=== PATIENT | female | born 1965 | race Caucasian/White ===

== ENCOUNTER 2024-06-01 08:24 | Inpatient (IN) | payer MEDICARE, MEDICAID, SELFPAY ==
[2024-06-01] VITALS (11 sets, daily range): BP systolic 105–140; BP diastolic 63–86; PULSE 59–140; RESP 10–20; TEMP 35.5–36.4; O2SAT 96–100; BMI 33.0
--- NOTE | ~2024-06-01 | XR_ITS ---
EXAMINATION: XR CHEST CLINICAL INFORMATION: Atrial fibrillation COMPARISON: None available. TECHNIQUE: Frontal view of the chest was obtained. FINDINGS: Lungs clear. Heart and pulmonary vessels normal. No evidence for congestive failure. Degenerative change seen in both shoulders. XR/XR chest 1V IMPRESSION: Unremarkable examination. Electronically signed by: Harsh Richardson MD 06/01/2024 10:20 AM EDT
--- NOTE | 2024-06-01 08:29 | ECG_ITS ---
Test Reason : FALL Blood Pressure : / mmHG Vent. Rate : 121 BPM Atrial Rate : 000 BPM P-R Int : 000 ms QRS Dur : 074 ms QT Int : 334 ms P-R-T Axes : 000 017 -04 degrees QTc Int : 474 ms Atrial fibrillation with rapid ventricular response (can be flutter) Nonspecific T wave abnormality Abnormal ECG No previous ECGs available Referred By: Generic ED Physician Electronically Signed By:ALEX GARDNER
[2024-06-01] MEDS: Metoprolol Tartrate 5 MG/5 ML VIAL IVPUSH (08:56)
--- NOTE | 2024-06-01 09:01 | ED_ITS ---
HPI - Arrhythmia/Palpitations General Chief Complaint: Arrhythmia/Palpitations Stated Complaint: [facility]170[facility] PER EMS Time Seen by Provider: 06/01/24 08:43 Source: patient and EMS Mode of arrival: EMS Limitations: no limitations History of Present Illness ED Provider: DR. Madrid HPI narrative: 58-year-old female came in from geriatric psych unit, brought in by EMS for evaluation of new onset atrial fibrillation, patient is a limited historian able to answer some of the question, has no chest pain, no shortness of breath, Found to be in rapid atrial fibrillation by the nursing staff today. Reviewing patient medication no anti arrhythmic or anticoagulation medication. Related Data Allergies Allergy/AdvReac Type Severity Reaction Status Date / Time acetaminophen [From Tylenol] Allergy Unknown Verified 06/01/24 08:38 aspirin [ASA] Allergy Unknown Verified 06/01/24 08:38 olanzapine [From Zyprexa] Allergy Unknown Verified 06/01/24 08:38 Penicillins [PCN] Allergy Unknown Verified 06/01/24 08:38 Review of Systems 2 Review of Systems: All other systems are reviewed and are negative Constitutional: Reports as per HPI and Reports no additional constitutional complaints Eyes: Reports as per HPI and Reports no additional eye complaints Reports system reviewed and no additional complaints, except as documented Cardiovascular: Reports as per HPI and Reports no additional cardiovascular complaints Respiratory: Reports as per HPI and Reports no additional respiratory complaints Gastrointestinal: Reports as per HPI and Reports no additional gastrointestinal complaints Genitourinary: Reports no additional female genitourinary complaints Musculoskeletal: Reports no additional musculoskeletal complaints Skin/Breast: Reports system reviewed and no additional complaints, except as docu Psychiatric: Reports no additional psychiatric complaints Endocrine: Reports no additional endocrine complaints Hematologic/Lymphatic: Reports no additional hematologic/lymphatic complaints Allergic/Immunologic: Reports no additional allergic/immunologic complaints Reports system reviewed and no additional complaints, except as documented and Reports Abnormal speech present [facility] Social History Social History Smoked in Last 30 Days: No Use of substances other than those prescribed or required for medical reasons: No Advance Directives: No Advance Directives Information Provided: Yes Do you have a plan to hurt others: No Plan Physical Exam 2 Vital Signs: Vital Signs: Last Vital Signs Temp 97.6 F 06/01/24 08:42 Pulse 70 06/01/24 09:51 Resp 18 06/01/24 09:51 BP 137/86 06/01/24 09:51 Pulse Ox 97 06/01/24 09:51 O2 Del Method Room Air 06/01/24 09:01 BMI result Body Mass Index 33.0 Vital signs have been reviewed and appear to be correct. Blood pressure elevated. Heart rate normal. Respiratory rate normal. Temperature normal. Oxygen saturation normal. Appearance: Alert. No acute distress. Head: Normal external exam. Normocephalic. Atraumatic. No Ag signs noted. No raccoon eyes noted Eyes: PERRLA. EOMI. Conjunctiva and sclera normal. Eyelids normal. ENT: TM's Normal. Pharynx normal. Uvula midline. Moist mucous membranes. No trismus noted. No drooling noted. No muffled voice noted. Neck: Normal inspection. Neck supple. FROM. No adenopathy. Thyroid Normal. No meningeal signs. No neck mass noted. CVS: Normal heart rate and rhythm. Heart sound normal. No murmurs noted. Pulses normal throughout. Respiratory: No respiratory distress. Painless inspiration. Breath sounds normal. No wheezes/rales/rhonchi noted. Chest nontender. No accessory muscle usage noted or decreased air movement noted. Abdomen: Soft and nontender. Bowel sounds normal in all 4 quadrants. No distention noted. No organomegaly noted. No visible injury noted. Back: No CVA tenderness. Full range of motion noted. Skin: Skin warm and dry. Normal skin color. Normal skin turgor. No rashes/lesions/lacerations noted. Extremities: No lower extremity edema. Extremities exhibit normal range of motion. Extremities nontender. Neuro: Oriented X [address] Cranial nerve exam: II-XII are grossly intact No motor deficit. No sensory deficit. Reflexes normal. Course Reevaluation(s) Reevaluation #1: new onset rapid atrial fibrillation that is controlled with metoprolol / digoxin IV in the emergency department, labs were unremarkable, patient otherwise hemodynamically stable. Will admit for further cardiac workup. Time: 10:07 Medications Administered Discontinued Medications Generic Name Dose Route Start Last Admin Trade Name Freq PRN Reason Stop Dose Admin Digoxin 0.25 mg 06/01/24 08:46 06/01/24 09:02 Digoxin 0.5 Mg/2 Ml Ampul IVPUSH 06/01/24 08:47 0.25 mg ONCE ONE Administration Protocol Metoprolol Tartrate 5 mg 06/01/24 08:46 06/01/24 08:56 Metoprolol Tartrate 5 Mg/5 Ml Vial IVPUSH 06/01/24 08:47 5 mg ONCE ONE Administration Protocol Medical Decision Making Differential Diagnosis Differential Diagnoses: The differential diagnosis associated with the presentation includes ( New onset atrial fibrillation with rapid ventricular response, dysrhythmia, ACS, CHF, electrolyte derangement, Severe anemia.) Admission/Observation Consideration of admission/observation: Escalation of care including admission/observation considered Lab Data MDM Lab Attestation statement: I reviewed the patient's lab results. 06/01/24 09:00 06/01/24 09:00 Labs: Lab Results 06/01/24 Range/Units 09:00 WBC 5.6 (4.8-10.8) X10*3/uL RBC 4.46 (4.20-5.50) X10*6/uL Hgb 13.9 (12.0-16.0) g/dl Hct 41.2 (37.0-47.0) % MCV 92.4 (80.0-98.0) fL MCH 31.2 (27.0-33.0) pg MCHC 33.7 (31.0-35.0) g/dl RDW 12.9 (11.0-16.0) % Plt Count 140 L (160-400) X10*3/uL MPV 12.2 (9.4-12.3) fL Immature Gran % (Auto) 0.2 (0.0-0.4) % Neut % (Auto) 62.1 (45-73) % Lymph % (Auto) 25.6 (20-40) % [place] % (Auto) 9.8 (2-11) % Eos % (Auto) 1.8 (0-4) % Baso % (Auto) 0.5 (0-2) % Lymph # (Auto) 1.4 (1.2-4.9) X10*3/uL [place] # (Auto) 0.6 (0.1-1.2) X10*3/uL Eos # (Auto) 0.1 (0.0-0.4) X10*3/uL Baso # (Auto) 0.0 (0.0-0.2) X10*3/uL Abs Immat Gran (auto) 0.01 (0.00-0.03) X10*3/uL Absolute Neuts (auto) 3.5 (2.0-8.3) x10*3/uL Absolute Nucleated RBC 0.000 (0.0-0.012) X10*3/uL Nucleated RBC % (auto) 0.0 (0.0-0.2) /100WBC PT 10.2 L (10.9-12.4) SEC INR 0.9 (0.9-1.1) Sodium 141 (135-145) mmol/L Potassium 4.2 (3.3-5.1) mmol/L Chloride 105 (96-108) mmol/L Carbon Dioxide 28 (22-29) mmol/L Anion Gap 12 (12-20) BUN 13 (9-16) mg/dL Creatinine 0.89 (0.5-1.4) mg/dL Estim Creat Clear Calc 76.3 Estimated GFR > 60 Random Glucose 144 H (60-115) mg/dL Total Bilirubin 0.3 (0.0-1.0) mg/dL Direct Bilirubin 0.1 (0.0-0.5) mg/dL AST 31 (5-31) U/L ALT 21 (0-31) U/L Alkaline Phosphatase 87 (39-117) U/L Troponin I High Sens 7.2 (<3.5-17.0) ng/L B-Natriuretic Peptide 43 (<100) pg/mL Total Protein 7.3 (6.5-8.0) g/dL Albumin 4.0 (3.5-5.0) g/dL Lipase 15 (8-78) U/L Influenza Type A (PCR) NEGATIVE (Negative) Influenza Type B (PCR) NEGATIVE (Negative) RSV RNA Qual (PCR) NEGATIVE (Negative) SARS-CoV-2 RNA (RT-PCR) NEGATIVE (Negative) Independent Interpretation I performed an independent interpretation of an: Plain X-Ray ( Chest: No acute intrathoracic pathology.) Radiology Impression Discussion of test interpretation with radiology: I have reviewed the radiologist's reading. Discharge Plan Discharge Clinical Impression: Atrial fibrillation with RVR Patient Disposition: Admitted As Inpatient Print Language: Georgian
[2024-06-01] MEDS: Digoxin 0.5 MG/2 ML AMPUL 0.25 MG IVPUSH (09:02)
[2024-06-01 09:05] LABS: MANUAL DIFF FLAG NO
[2024-06-01 09:07] LABS: Basophils Percent Auto 0.5 % (0-2); Eosinophils Absolute Auto 0.1 X10*3/uL (0.0-0.4); Eosinophils Percent Auto 1.8 % (0-4); Hematocrit 41.2 % (37.0-47.0); Hemoglobin 13.9 g/dl (12.0-16.0); Imm Gran Abs Auto 0.01 X10*3/uL (0.00-0.03); Imm Gran Pct Auto 0.2 % (0.0-0.4); Lymphocytes Absolute Auto 1.4 X10*3/uL (1.2-4.9); Lymphocytes Percent Auto 25.6 % (20-40); Mean Corpuscular HGB Conc 33.7 g/dl (31.0-35.0); Mean Corpuscular Hemoglobin 31.2 pg (27.0-33.0); Mean Corpuscular Volume 92.4 fL (80.0-98.0); Mean Platelet Volume 12.2 fL (9.4-12.3); Monocytes Absolute Auto 0.6 X10*3/uL (0.1-1.2); Monocytes Percent Auto 9.8 % (2-11); Neutrophils Absolute Auto 3.5 x10*3/uL (2.0-8.3); Neutrophils Percent Auto 62.1 % (45-73); Platelet Count 140 X10*3/uL (160-400); Red Blood Count 4.46 X10*6/uL (4.20-5.50); Red Cell Distribution Width 12.9 % (11.0-16.0); White Blood Count 5.6 X10*3/uL (4.8-10.8)
[2024-06-01 09:13] LABS: INTERNATIONAL NORM RATIO 0.9 (0.9-1.1); Prothrombin Time 10.2 SEC (10.9-12.4)
[2024-06-01 09:34] LABS: B Type Natriuretic Peptide 43 pg/mL (<100)
[2024-06-01 09:35] LABS: Troponin-I High Sensitivity 7.2 ng/L (<3.5-17.0)
[2024-06-01 09:50] LABS: Alanine Aminotransferase 21 U/L (0-31); Alkaline Phosphatase 87 U/L (39-117); Anion Gap 12 (12-20); Aspartate Amino Transferase 31 U/L (5-31); Bilirubin Direct 0.1 mg/dL (0.0-0.5); Bilirubin Total 0.3 mg/dL (0.0-1.0); Blood Urea Nitrogen 13 mg/dL (9-16); Carbon Dioxide 28 mmol/L (22-29); Chloride 105 mmol/L (96-108); Creatinine Clr Calc Pharmacy 76.3; Estimated Glomerular Filt Rate > 60; Glucose Random 144 mg/dL (60-115); Lipase 15 U/L (8-78); Potassium 4.2 mmol/L (3.3-5.1); Sodium 141 mmol/L (135-145); Total Protein 7.3 g/dL (6.5-8.0)
[2024-06-01 09:51] LABS: Influenza A PCR NEGATIVE (Negative); Influenza B PCR NEGATIVE (Negative); Resp Syncy Virus RNA Qual PCR NEGATIVE (Negative); SARS COV2 PCR INHOUSE NEGATIVE (Negative)
[2024-06-01 10:22] LABS: Calcium 9.6 mg/dL (8.4-10.2)
[2024-06-01 11:04] LABS: Appearance Urine Clear; Color Urine Yellow; Glucose Urine UA Negative (Negative); Leukocyte Esterase Urine Trace (Negative); Nitrite Urine Negative (Negative); Specific Gravity - Urine <= 1.005 (1.005-1.025); UMIC TRIGGER UACC YES; Urine Blood Negative (Negative); Urine Ketones Negative (Negative); Urine Protein Negative (Neg-Trace)
--- NOTE | 2024-06-01 11:04 | PHA.MEDREC ---
Pharmacy Consult ? Medication Reconciliation Pharmacy has completed the medication reconciliation. List from [place]
[2024-06-01 11:06] LABS: Bacteria Urine None Seen (None Seen); Hyaline Casts Urine 0-2 /LPF (0-2); RBC Urine 0-2 /HPF (0-2); Squamous Epithelial Cell Urine 0-2 /HPF (0-2); WBC Urine 0-5 /HPF (0-5)
[2024-06-01 11:46] LABS: Thyroid Stimulating Hormone 2.88 uIU/mL (0.32-4.0)
--- NOTE | 2024-06-01 11:52 | P.HPHOSP_ITS ---
History of Present Illness Date of Service: 06/01/24 Attending physician on admission: Bharti Nelson Chief Complaint: new onset a. fib Patient is a 58-year-old female with a past medical history significant for dementia with limited history, arrived in ED from [facility] due to new onset AFib. Due to her limited cognitive status history was difficult to obtain however patient denies chest pain, shortness of breath, nausea, vomiting, dizziness or weakness. She reports she reports a history of alcohol use however none recently. Review of Systems 2 Review of Systems: Likely inaccurate due to mental status Constitutional: Constitutional: Denies chills, Denies fatigue, Denies fever(s), Denies headache(s) and Denies weakness Eyes: Eyes: Denies blurry vision and Denies change in vision ENT: Denies dizziness, Denies headache(s), Denies nasal congestion, Denies nasal discharge and Denies sore throat Cardiovascular: Cardiovascular: Denies syncope, Denies lightheadedness and Denies dyspnea Respiratory: Respiratory: Denies cough and Denies dyspnea Gastrointestinal: Gastrointestinal: Denies constipation, Denies diarrhea, Denies nausea and Denies vomiting Genitourinary: Genitourinary: Denies dysuria and Denies urinary urgency Musculoskeletal: Musculoskeletal: Reports myalgias Integumentary/Breasts: Skin/Breast: Denies rash Neurologic: Denies confusion, Denies dizziness, Denies syncope, Denies headache(s), Denies focal weakness, Denies convulsions and Denies weakness Psychiatric: Psychiatric: Denies confusion Endocrine: Endocrine: Denies fatigue [facility] Medical History (Updated 06/01/24 @ 12:33 by Alexsandra Sawant PA-C) History of ETOH abuse Dementia Social History Smoked in Last 30 Days: No Use of substances other than those prescribed or required for medical reasons: No Advance Directives: No Advance Directives Information Provided: Yes Do you have a plan to hurt others: No Plan Meds Allergies Allergy/AdvReac Type Severity Reaction Status Date / Time acetaminophen [From Tylenol] Allergy Unknown Verified 06/01/24 08:38 aspirin [ASA] Allergy Unknown Verified 06/01/24 08:38 olanzapine [From Zyprexa] Allergy Unknown Verified 06/01/24 08:38 Penicillins [PCN] Allergy Unknown Verified 06/01/24 08:38 Home Medications ?Medication ?Instructions ?Recorded ?Confirmed ?Last Taken ?Type albuterol sulfate 90 mcg/actuation 2 puff inhalation Q4-6H PRN 06/01/24 06/01/24 Unknown History aerosol inhaler Wheezing benzocaine-menthol lozenges 1 natalie PO Q2H PRN Sore Throat 06/01/24 06/01/24 Unknown History diphenhydramine HCl 25 mg capsule 25 mg PO Q6H PRN Itching 06/01/24 06/01/24 Unknown History divalproex 500 mg tablet,extended 500 mg PO BID 06/01/24 06/01/24 Unknown History release 24 hr docusate sodium 100 mg capsule 100 mg PO DAILY 06/01/24 06/01/24 Unknown History donepezil 10 mg tablet 10 mg PO BEDTIME 06/01/24 06/01/24 Unknown History hydroxyzine HCl 50 mg tablet 50 mg PO QID PRN Anxiety 06/01/24 06/01/24 Unknown History ibuprofen 600 mg tablet 600 mg PO Q6H PRN Pain (Scale 06/01/24 06/01/24 Unknown History Score 4-6) lidocaine 4 % topical patch 1 patch topical DAILY PRN Pain 06/01/24 06/01/24 Unknown History loperamide 2 mg capsule 2 mg PO Q4H PRN Diarrhea 06/01/24 06/01/24 Unknown History lorazepam 0.5 mg tablet 0.5 mg PO Q8H PRN Anxiety 06/01/24 06/01/24 Unknown History paliperidone 6 mg tablet,extended 6 mg PO DAILY 06/01/24 06/01/24 Unknown History release 24 hr paliperidone palmitate 156 mg/mL 156 mg IM Q30D 06/01/24 06/01/24 Unknown History intramuscular syringe quetiapine 50 mg tablet 50 mg PO BID PRN Anxiety 06/01/24 06/01/24 Unknown History trazodone 50 mg tablet 50 mg PO BEDTIME PRN Insomnia 06/01/24 06/01/24 Unknown History Physical Exam 2 Vital Signs and Narrative: Vital Signs: Last Vital Signs Temp 97.6 F 06/01/24 08:42 Pulse 68 06/01/24 10:29 Resp 14 06/01/24 10:29 BP 124/69 10/29/24 10:29 Pulse Ox 97 06/01/24 10:29 O2 Del Method Room Air 06/01/24 10:29 BMI result Body Mass Index 33.0 General: alert, oriented to person and place, no acute distress Resp: CTA bilaterally CVS: S1, S2, RRR, no active a fib on monitor GI: +BS, NT, no distention Skin: Warm, dry Neuro: Cranial nerves II-XII grossly intact bilaterally. Motor grossly intact bilaterally Extremities: No edema Psych: confused, normal affect Const: General: No confusion Orientation/consciousness: No confusion Neuro: General: No confusion Results Labs 06/01/24 09:00 06/01/24 09:00 Labs: Laboratory Results - last 24 hr 06/01/24 06/01/24 09:00 10:54 MCV 92.4 MCH 31.2 MCHC 33.7 RDW 12.9 Plt Count 140 L MPV 12.2 Immature Gran % (Auto) 0.2 Neut % (Auto) 62.1 Lymph % (Auto) 25.6 [place] % (Auto) 9.8 Eos % (Auto) 1.8 Baso % (Auto) 0.5 Lymph # (Auto) 1.4 [place] # (Auto) 0.6 Eos # (Auto) 0.1 Baso # (Auto) 0.0 Abs Immat Gran (auto) 0.01 Absolute Neuts (auto) 3.5 Absolute Nucleated RBC 0.000 Nucleated RBC % (auto) 0.0 PT 10.2 L INR 0.9 Anion Gap 12 Estim Creat Clear Calc 76.3 Estimated GFR > 60 Random Glucose 144 H Calcium 9.6 Total Bilirubin 0.3 Direct Bilirubin 0.1 AST 31 ALT 21 Alkaline Phosphatase 87 Troponin I High Sens 7.2 B-Natriuretic Peptide 43 Total Protein 7.3 Albumin 4.0 Lipase 15 TSH 2.88 Urine Color Yellow Urine Appearance Clear Urine pH 8.0 Ur Specific [place] <= 1.005 Urine Protein Negative Urine Glucose (UA) Negative Urine Ketones Negative Urine Blood Negative Urine Nitrite Negative Ur Leukocyte Esterase Trace H Urine RBC 0-2 Urine WBC 0-5 Ur Squamous Epith Cells 0-2 Urine Bacteria None Seen Hyaline Casts 0-2 Influenza Type A (PCR) NEGATIVE Influenza Type B (PCR) NEGATIVE RSV RNA Qual (PCR) NEGATIVE SARS-CoV-2 RNA (RT-PCR) NEGATIVE ECG Interpretation: rapid a fib with RVR Imaging Radiologist's Impressions: Impressions Chest X-Ray 06/01/24 09:00 IMPRESSION: Unremarkable examination. Electronically signed by: Harsh Richardson MD 06/01/2024 10:20 AM EDT RP Assessment and Plan (1) Atrial fibrillation with RVR: Status: Acute (2) Obesity (BMI 30.0-34.9): Status: Chronic Plan Patient is a 58-year-old female with a past medical history significant for dementia and mood disorder with limited history, arrived in ED from [facility] due to new onset AFib. EKG and tele here consistent with AFib with RVR. Patient given digoxin 0.25 mg and metoprolol 5 mg and ED with good improvement. New onset AFib with RVR - stable - given digoxin 0.25 and metoprolol 5 mg and ED, hold rate controlling meds, stable BP and rate - TSH normal - cardiac consult, discuss anticoagulation with Cardiology, not sure of patient's ambulatory status - CHADS VASc score 1 - echocardiogram - admit to med tele Dementia/mood disorder - continue divalproex, donepezil, paliperidone, quetiapine Full code VTE prophylaxis: Pneumoboots, awaiting anticoagulation after discussion with Cardiology Patient with new onset AFib with RVR complicated by limited history due to dementia. Admit to med tele for monitoring and further workup for at least 2 midnight stay. Quality Stroke Does the patient have a stroke diagnosis?: No VTE Prior VTE?: No VTE Risk Level:: Medical - moderate - high VTE Device Contraindication: N/A - Device Ordered VTE Drug Contraindication: Treatment Not Tolerated
--- NOTE | 2024-06-01 16:04 | MHC.CM.PN ---
IMM 06/01/24, EMR REVIEWED, PT W/NEW ONSET AFIB/DEMENTIA, [facility], NO HCP/CONTACT #/NEXT OF KIN LISTED. CM MET W/PT WHO REPORTS SHE LIVES IN AN APT W/HER DTR JIGAR TAVERA AND REPORTS SHE WANTS TO GET OUT OF THERE AND C/O HER DTR THROWING OUT ALL OF HER MEDS, UNSURE IF THIS IS ACCURATE INFORMATION AND CM HAS LEFT A DETAILED MESSAGE AT [facility] W/REQUEST FOR CALL BACK. PT ALSO REPORTING SHE DOES NOT WANT TO RETURN TO [facility] AND WILL LIKELY NEED CARE TEAM ONCE MEDICALLY CLEARED. PT DENIES USE OF DME AND DENIES HAVING HOME SERVICES PRIOR TO [facility] ADMISSION. PT REPORTS SHE HAS A PSYCHIATRIST (?DR. SHIRLEY) AND A PCP (?DR. PEREZ) CM ATTEMPTED TO CONTACT PT'S DTR JIGAR WHO PT REPORTS IS HER HCP AT PHONE LISTED HOWEVER PHONE AT 4:03PM IS CURRENTLY NOT IN WORKING ORDER PER RECORDING.
[2024-06-01] MEDS: 0.9 % Sodium Chloride Flush 3 ML SYRINGE IVFLUSH ×2 (17:59→19:55)
[2024-06-01] MEDS: Divalproex Sodium ER 500 MG TAB.ER.24H PO (19:55)
[2024-06-01] MEDS: Donepezil HCl 10 MG TABLET PO (19:55)
[2024-06-01] MEDS: traZODone HCL 50 MG TABLET PO (23:32)
[2024-06-01] MEDS: LORazepam 0.5 MG TABLET PO (23:32)
[2024-06-01] MEDS: Ibuprofen 600 MG TABLET PO (23:34)
[2024-06-01] MEDS: diphenhydrAMINE HCL 25 MG CAPSULE PO (23:34)
[2024-06-02] MEDS: Throat Lozenge, Medicated LOZENGE 1 LOZENGE MUCOUS MEM ×4 (01:38→20:20)
[2024-06-02 03:04] VITALS: BP 100/57; PULSE 65; RESP 18; TEMP 36.3; O2SAT 98
--- NOTE | 2024-06-02 07:00 | CA_ITS ---
Transthoracic Echocardiogram Patient (Last, First, Middle): Tess Islas, Gender: Female Date of : 1965 Age: 58 Procedure Date: 06/02/2024 Procedure Type: Transthoracic Echocardiogram Location: [facility] [place] Height: 165.1 cm Weight: 89.81 kg BSA: 1.97 m2 Heart Rate: bpm BP: 128 / 80 mmHg Nursing Informatics Specialist: TO Referring MD: Alexsandra Sawant PA-C Symptoms: new onset a fib Study Quality: Adequate with contrast ECG Rhythm: Sinus Conclusions: - The left ventricular systolic function is normal. The calculated ejection fraction is 62% by biplane method. - No obvious valvular pathology seen on this study. Findings Procedure Information Contrast agent, definity, is being given per protocol without apparent complications. Left Ventricle Normal left ventricular cavity size. There is normal left ventricular wall thickness. The left ventricular systolic function is normal. The calculated ejection fraction is 62% by biplane method. There is no evidence of regional wall motion abnormalities. Diastolic function is normal for age. Right Ventricle Normal right ventricular cavity size and systolic function. Atria Both atria are normal in size. Aortic Valve There is a normal trileaflet aortic valve. There is mild calcification of the aortic valve. There is no aortic valve stenosis. There is trace (trivial) aortic valve regurgitation. Mitral Valve The mitral valve appears normal. There is no mitral valve regurgitation. There is no mitral valve stenosis. Pulmonic Valve The pulmonic valve is likely normal. Tricuspid Valve There is trace tricuspid valve regurgitation. There is no evidence of pulmonary hypertension. Great Vessels Top normal ascending aortic size at 3.5 cm. Venous The inferior vena cava is normal in size and collapses greater than 50% with inspiration. Pericardium/Pleural There is no evidence of pericardial effusion. Prior Study Comparison No prior study available for comparison. Recommendations, Care & Conclusions No obvious valvular pathology seen on this study. Measurements 2D Linear Measurements IVSd: 0.99 0.6-0.9/0.6-1.0 cm LVIDd: 4.50 3.9-5.3/4.2-5.9 cm LVIDd Index: 2.28 2.4-3.2/2.2-3.1 cm/m2 LVIDs: 2.96 2.0-3.6 cm LVPWd: 0.85 0.7-1.1 cm LA Diam: 3.00 2.7-3.8/3.0-4.0 cm LAIDs Index: 1.52 1.5-2.3 cm/m2 LV Mass: 170.14 67-162/88-224 g LV Mass Index: 86.36 43-95/49-115 g/m2 LVOT Diam: 2.20 3.0+(-)1.3 cm 2D Systolic Function EF 4C: 67.40 >55% EF 2C: 58.70 >55% EF BiP: 62.40 >55% Mitral Valve MV Pk E: 0.75 MV PK A: 0.50 MV Decel Time: 261.00 E/A: 1.50 E'Lateral: 9.46 E'Medial: 4.79 E/E' Med: 15.60 E/E' Lat: 7.90 PHT: 76.00 MVA PHT: 2.89 Decel [place]: 2.86 Aortic Valve AoV Pk Juan: 1.64 AoV Mn Juan: 1.06 AoV VTI: 0.35 AoV Pk Grad: 11.00 Aov Mn Grad: 5.00 ANIYA Cont.VTI: 2.54 LVOT LVOT Pk Juan: 1.12 LVOT Mn Juan: 0.71 LVOT VTI: 0.24 LVOT Pk Grad: 5.00 LVOT Mn Grad: 2.00 LVOT Diam: 2.20 LVOT Area: 3.80 Diastolic Function MV Pk E: 0.75 MV Pk A: 0.50 E/A: 1.50 E'Medial: 4.79 E/E' Med: 15.60 E' Laterial: 9.46 E/E' Lat: 7.90 Right Ventricle TAPSE (mm): 22.10 TVS' Juan: 15.20 Tricuspid Valve RA Press: 3.00 Great Vessels Aorta Sinus of Valsalva: 3.29 2.0-3.5 cm Ao Asc: 3.50 2.1-3.4 cm Updated in Other Vendor System with Status of Final Josue Quiñones MD electronically signed on 06/02/2024 10:27:56 AM with status of Final
[2024-06-02 07:20] VITALS: BP 119/66; PULSE 65; RESP 18; TEMP 37.1; O2SAT 95
[2024-06-02 07:20] LABS: MANUAL DIFF FLAG NO
[2024-06-02 07:33] LABS: Basophils Percent Auto 0.4 % (0-2); Eosinophils Absolute Auto 0.1 X10*3/uL (0.0-0.4); Eosinophils Percent Auto 2.4 % (0-4); Hematocrit 38.2 % (37.0-47.0); Hemoglobin 12.6 g/dl (12.0-16.0); Imm Gran Abs Auto 0.01 X10*3/uL (0.00-0.03); Imm Gran Pct Auto 0.2 % (0.0-0.4); Lymphocytes Absolute Auto 1.5 X10*3/uL (1.2-4.9); Mean Corpuscular Hemoglobin 30.5 pg (27.0-33.0); Mean Corpuscular Volume 92.5 fL (80.0-98.0); Monocytes Absolute Auto 0.6 X10*3/uL (0.1-1.2); Monocytes Percent Auto 12.1 % (2-11); Neutrophils Absolute Auto 2.4 x10*3/uL (2.0-8.3); Neutrophils Percent Auto 51.9 % (45-73); Platelet Count 134 X10*3/uL (160-400); Red Blood Count 4.13 X10*6/uL (4.20-5.50); Red Cell Distribution Width 12.8 % (11.0-16.0); White Blood Count 4.6 X10*3/uL (4.8-10.8)
[2024-06-02 07:37] LABS: Anion Gap 12 (12-20); Blood Urea Nitrogen 16 mg/dL (9-16); Carbon Dioxide 26 mmol/L (22-29); Chloride 106 mmol/L (96-108); Estimated Glomerular Filt Rate > 60; Glucose Random 92 mg/dL (60-115); Potassium 4.4 mmol/L (3.3-5.1); Sodium 140 mmol/L (135-145)
[2024-06-02] MEDS: Divalproex Sodium ER 500 MG TAB.ER.24H PO ×2 (07:41→20:19)
[2024-06-02] MEDS: Paliperidone ER 6 MG TAB.ER.24 PO (07:41)
[2024-06-02] MEDS: 0.9 % Sodium Chloride Flush 3 ML SYRINGE IVFLUSH ×3 (07:42→20:20)
[2024-06-02] MEDS: Docusate Sodium 100 MG CAPSULE PO (07:42)
[2024-06-02] MEDS: QUEtiapine Fumarate 50 MG TABLET PO (07:45)
[2024-06-02] MEDS: hydrOXYzine HCL 50 MG TABLET PO (07:45)
[2024-06-02] MEDS: Ibuprofen 600 MG TABLET PO (07:46)
--- NOTE | 2024-06-02 09:29 | PM.CNCAR ---
History of Present Illness History of Present Illness Date of Service: 06/02/24 Chief complaint: new onset a fib with RVR Narrative: This is a cardiology consultation regarding atrial fibrillation. Reviewed chart, discussed with Dr.Ghias. Ho historian. Listed to have dementia at baseline. Per history as well as discussion with hospitalists patient had no symptoms but brought to the hospital for irregular heart rate and found to have atrial fibrillation. However, patient states she did have 2 days of palpitations but no other symptoms. Hence not clear. Then it seems that she got IV beta-blockers/digoxin in the ER and then converted back to sinus rhythm. She remains in sinus rhythm. Otherwise, she states she feels fine. No known cardiac history. Review of Systems Review of Systems: Yes all other systems are reviewed and are negative Constitutional: Constitutional: Reports as per HPI and Reports no additional constitutional complaints Eyes: Eyes: Reports as per HPI and Denies no additional eye complaints ENT: Denies system reviewed and no additional complaints, except as documented and Reports as per HPI Cardiovascular: Cardiovascular: Reports as per HPI, Reports no additional cardiovascular complaints, Denies acrocyanosis, Denies cool extremities, Denies chest pain, Denies leg edema, Denies lightheadedness, Denies palpitations and Denies dyspnea Respiratory: Respiratory: Reports as per HPI, Denies no additional respiratory complaints and Denies dyspnea Gastrointestinal: Gastrointestinal: Reports as per HPI and Denies no additional gastrointestinal complaints Genitourinary: Genitourinary: Reports as per HPI Musculoskeletal: Musculoskeletal: Reports no additional musculoskeletal complaints and Reports as per HPI Integumentary/Breasts: Skin/Breast: Reports system reviewed and no additional complaints, except as docu Neurologic: Reports system reviewed and no additional complaints, except as documented and Reports as per HPI Psychiatric: Psychiatric: Reports no additional psychiatric complaints and Reports as per HPI Endocrine: Endocrine: Reports no additional endocrine complaints, Reports as per HPI and Denies palpitations Hematologic/Lymphatic: Hematologic/Lymphatic: Reports no additional hematologic/lymphatic complaints and Reports as per HPI Allergic/Immunologic: Allergic/Immunologic: Reports no additional allergic/immunologic complaints and Reports as per HPI PMF Past Medical History Medical History History of ETOH abuse Dementia Family History Pertinent family history: Unable to obtain Social History Social History Household Members: Unknown / Unable to assess Patient Tobacco Use Status: Tobacco use Unknown Smoked in Last 30 Days: No Use of substances other than those prescribed or required for medical reasons: Unable to respond Currently Displaying Signs/Symptoms of Drug Intoxication Withdrawal: No Advance Directives: No Advance Directives Information Provided: Yes Do you have a plan to hurt others: No Plan Recently lost weight without trying: Unsure How much weight loss: Unsure Patient : No : No Poor oral hygiene: No service: No Meds Allergies Allergy/AdvReac Type Severity Reaction Status Date / Time acetaminophen [From Tylenol] Allergy Unknown Verified 06/01/24 08:38 aspirin [ASA] Allergy Unknown Verified 06/01/24 08:38 olanzapine [From Zyprexa] Allergy Unknown Verified 06/01/24 08:38 Penicillins [PCN] Allergy Unknown Verified 06/01/24 08:38 Active Medications: Current Medications Acetaminophen (Acetaminophen 325 Mg Tablet) 650 mg PO Q6H PRN PRN Reason: Pain, Mild (Pain Scale 1-3), fever or headache Albuterol Sulfate (Albuterol Sulfate 90 Mcg 8 Gm Inhaler) 2 puff INHALE RQ4H PRN PRN Reason: Wheezing Benzocaine (Throat Lozenge, Medicated Lozenge) 1 lozenge MUCOUS MEM Q2H PRN PRN Reason: Sore Throat Last Admin: 06/02/24 07:40 Dose: 1 lozenge Calcium Carbonate (Calcium Carbonate 750 Mg Tab.Chew) 750 mg PO Q4H PRN PRN Reason: Heartburn Diphenhydramine HCl (Diphenhydramine Hcl 25 Mg Capsule) 25 mg PO Q6H PRN PRN Reason: Itching Last Admin: 06/01/24 23:34 Dose: 25 mg Divalproex Sodium (Divalproex Sodium Er 500 Mg Tab.Er.24h) 500 mg PO BID [facility] Last Admin: 06/02/24 07:41 Dose: 500 mg Docusate Sodium (Docusate Sodium 100 Mg Capsule) 100 mg PO DAILY [facility] Last Admin: 06/02/24 07:42 Dose: 100 mg Donepezil HCl (Donepezil Hcl 10 Mg Tablet) 10 mg PO BEDTIME [facility] Last Admin: 06/01/24 19:55 Dose: 10 mg Hydroxyzine HCl (Hydroxyzine Hcl 50 Mg Tablet) 50 mg PO QID PRN PRN Reason: Anxiety Last Admin: 06/02/24 07:45 Dose: 50 mg Ibuprofen (Ibuprofen 600 Mg Tablet) 600 mg PO Q6H PRN PRN Reason: Pain (Scale Score 4-6) Last Admin: 06/02/24 07:46 Dose: 600 mg Lorazepam (Lorazepam 0.5 Mg Tablet) 0.5 mg PO Q8H PRN PRN Reason: Anxiety Last Admin: 06/01/24 23:32 Dose: 0.5 mg Magnesium Hydroxide (Milk Of Magnesia 30 Ml Oral.Susp) 30 ml PO DAILY PRN PRN Reason: Constipation Melatonin (Melatonin 3 Mg Tablet) 6 mg PO BEDTIME PRN PRN Reason: Insomnia Ondansetron HCl (Ondansetron Hcl 4 Mg/2 Ml Vial) 4 mg IVPUSH Q8H PRN PRN Reason: Nausea and Vomiting Paliperidone (Paliperidone Er 6 Mg Tab.Er.24) 6 mg PO DAILY [facility] Last Admin: 06/02/24 07:41 Dose: 6 mg Quetiapine Fumarate (Quetiapine Fumarate 50 Mg Tablet) 50 mg PO BID PRN PRN Reason: Anxiety Last Admin: 06/02/24 07:45 Dose: 50 mg Sodium Chloride (0.9 % Sodium Chloride Flush 3 Ml Syringe) [facility] Last Admin: 06/02/24 07:42 Dose: 3 ml Trazodone HCl (Trazodone Hcl 50 Mg Tablet) 50 mg PO BEDTIME PRN PRN Reason: Insomnia Last Admin: 06/01/24 23:32 Dose: 50 mg Home Medications ?Medication ?Instructions ?Recorded ?Confirmed ?Last Taken ?Type albuterol sulfate 90 mcg/actuation 2 puff inhalation Q4-6H PRN 06/01/24 06/01/24 Unknown History aerosol inhaler Wheezing benzocaine-menthol lozenges 1 natalie PO Q2H PRN Sore Throat 06/01/24 06/01/24 Unknown History diphenhydramine HCl 25 mg capsule 25 mg PO Q6H PRN Itching 06/01/24 06/01/24 Unknown History divalproex 500 mg tablet,extended 500 mg PO BID 06/01/24 06/01/24 Unknown History release 24 hr docusate sodium 100 mg capsule 100 mg PO DAILY 06/01/24 06/01/24 Unknown History donepezil 10 mg tablet 10 mg PO BEDTIME 06/01/24 06/01/24 Unknown History hydroxyzine HCl 50 mg tablet 50 mg PO QID PRN Anxiety 06/01/24 06/01/24 Unknown History ibuprofen 600 mg tablet 600 mg PO Q6H PRN Pain (Scale 06/01/24 06/01/24 Unknown History Score 4-6) lidocaine 4 % topical patch 1 patch topical DAILY PRN Pain 06/01/24 06/01/24 Unknown History loperamide 2 mg capsule 2 mg PO Q4H PRN Diarrhea 06/01/24 06/01/24 Unknown History lorazepam 0.5 mg tablet 0.5 mg PO Q8H PRN Anxiety 06/01/24 06/01/24 Unknown History paliperidone 6 mg tablet,extended 6 mg PO DAILY 06/01/24 06/01/24 Unknown History release 24 hr paliperidone palmitate 156 mg/mL 156 mg IM Q30D 06/01/24 06/01/24 Unknown History intramuscular syringe quetiapine 50 mg tablet 50 mg PO BID PRN Anxiety 06/01/24 06/01/24 Unknown History trazodone 50 mg tablet 50 mg PO BEDTIME PRN Insomnia 06/01/24 06/01/24 Unknown History Physical Exam Vital Signs: Vital Signs: Last Vital Signs Temp 98.7 F 06/02/24 07:20 Pulse 65 06/02/24 07:20 Resp 18 06/02/24 07:20 BP 119/66 06/02/24 07:20 Pulse Ox 95 06/02/24 07:20 O2 Del Method Room Air 06/02/24 07:20 BMI result Body Mass Index 33.0 Const: General: comfortable and no acute distress Orientation/consciousness: patient oriented x3 HEENT: Other: Unremarkable Head: Yes normal to inspection Neck: Neck: Yes normal visual inspection Chest: Chest palpation & inspection: normal inspection of the chest Resp: Auscultation: clear to auscultation bilaterally Cardio: Palpation: normal PMI Heart sounds: S1 normal heart sound present, S2 normal heart sound present, no gallops, no murmurs and no rubs GI: Palpation (GI): Soft to palpation Back/Spine/Pelvis: Other: unremarkable Skin: General skin exam: no rashes or lesions noted Neuro: General: patient oriented x3 Extrem: General: Yes normal to inspection Psych: Mental Status: mental status grossly normal Objective Labs and Meds 06/02/24 06:39 06/02/24 06:39 Lab results: Laboratory Results - last 24 hr 06/01/24 06/01/24 06/02/24 09:00 10:54 06:39 WBC 4.6 L RBC 4.13 L Hgb 12.6 Hct 38.2 MCV 92.5 MCH 30.5 MCHC 33.0 RDW 12.8 Plt Count 134 L MPV 12.0 Immature Gran % (Auto) 0.2 Neut % (Auto) 51.9 Lymph % (Auto) 33.0 [place] % (Auto) 12.1 H Eos % (Auto) 2.4 Baso % (Auto) 0.4 Lymph # (Auto) 1.5 [place] # (Auto) 0.6 Eos # (Auto) 0.1 Baso # (Auto) 0.0 Abs Immat Gran (auto) 0.01 Absolute Neuts (auto) 2.4 Absolute Nucleated RBC 0.000 Nucleated RBC % (auto) 0.0 Sodium 141 140 Potassium 4.2 4.4 Chloride 105 106 Carbon Dioxide 28 26 Anion Gap 12 12 BUN 13 16 Creatinine 0.89 0.86 Estim Creat Clear Calc 76.3 79.0 Estimated GFR > 60 > 60 Random Glucose 144 H 92 Calcium 9.6 9.0 D Total Bilirubin 0.3 Direct Bilirubin 0.1 AST 31 ALT 21 Alkaline Phosphatase 87 Troponin I High Sens 7.2 B-Natriuretic Peptide 43 Total Protein 7.3 Albumin 4.0 Lipase 15 TSH 2.88 Urine Color Yellow Urine Appearance Clear Urine pH 8.0 Ur Specific [place] <= 1.005 Urine Protein Negative Urine Glucose (UA) Negative Urine Ketones Negative Urine Blood Negative Urine Nitrite Negative Ur Leukocyte Esterase Trace H Urine RBC 0-2 Urine WBC 0-5 Ur Squamous Epith Cells 0-2 Urine Bacteria None Seen Hyaline Casts 0-2 Influenza Type A (PCR) NEGATIVE Influenza Type B (PCR) NEGATIVE RSV RNA Qual (PCR) NEGATIVE SARS-CoV-2 RNA (RT-PCR) NEGATIVE ECG Interpretation: EKG with atrial fibrillation at a rate of 121/Min. Currently, in sinus rhythm on telemetry. Imaging Radiologist's impression: Impressions Chest X-Ray 06/01/24 09:00 IMPRESSION: Unremarkable examination. Electronically signed by: Harsh Richardson MD 06/01/2024 10:20 AM EDT RP Assessment and Plan (1) Atrial fibrillation with RVR: Status: Acute Plan High sensitivity troponins within normal limits. Cardiac BNP is 43. We will obtain echocardiogram for cardiac function assessment. Low-dose beta-blockers. Due to isolated episode as well as low thromboembolic risk, no clear indication for anticoagulation. Discussed with . Procedures Date of Service Date of Service: 06/02/24
--- NOTE | 2024-06-02 09:32 | MHC.CM.PN ---
Addendum entered by Niru Abel RN 06/02/24 14:07: CM RECEIVED MESSAGE FROM [facility] REPORTING THEY WOULD NOT BE ABLE TO TAKE PT BACK UNTIL TOMORROW. Addendum entered by Niru Abel RN 06/02/24 12:31: CM CONTACTED [facility] AND SPOKE TO A DIFFERENT PERSON IN [facility] WHO REPORTED THEY MAY TAKE PT BACK HOWEVER WILL NEED TO REVIEW UPDATED CLINICALS, CM WILL FAX TO INTAKE AT [phone]. Original Note: CM CONTACTED [facility] AT 9:25AM [phone], CM SPOKE [facility] WHO REPORT THEY WILL SEND A MESSAGE TO [facility] AND SOMEONE WILL RETURN CALL, CM CONTACT INFO PROVIDED. CM TO FOLLOW -UP IF NO RESPONSE.
[2024-06-02 11:01] VITALS: BP 130/74; PULSE 80; RESP 18; TEMP 36.4; O2SAT 98
--- NOTE | 2024-06-02 13:00 | PM.DS ---
DS: Providers Provider Date of Service: 06/02/24 Date of admission: 06/01/24 12:15 Date of discharge: 06/02/24 Primary care physician: Nonstaff Physician Consults: 06/01/24 12:14 Consult to Cardiology Routine Consulting Provider: [facility] [place] [facility] Reason for consultation: new onset a fib with RVR Has provider been notified: No DS: Diagnosis Discharge Diagnosis (1) Atrial fibrillation with RVR: Status: Acute DS: Summary Hospital Course Hospital Course: Date of Service: 06/01/24 Attending physician on admission: Bharti Nelson Chief Complaint: new onset a. fib Patient is a 58-year-old female with a past medical history significant for dementia with limited history, arrived in ED from [facility] due to new onset AFib. Due to her limited cognitive status history was difficult to obtain however patient denies chest pain, shortness of breath, nausea, vomiting, dizziness or weakness. She reports she reports a history of alcohol use however none recently. In ED patient noted to have atrial fibrillation with ventricular rate in 140s, afebrile, oxygenation and blood pressure, unremarkable labs, normal TSH, patient treated in the emergency room with 1 dose of IV metoprolol and IV digoxin subsequently ventricular rate improved and patient admitted to telemetry. Hospital course: New onset atrial fibrillation with RVR 58-year-old female with a past medical history significant for dementia and mood disorder with limited history, arrived in ED from [facility], due to new onset AFib. EKG and telemonitor showed AFib with RVR. Patient given digoxin 0.25 mg and metoprolol 5 mg in ED with improvement in heart rate and admitted to telemetry unit with a diagnosis of New onset AFib with RVR , during course of hospitalization patient converted to normal sinus rhythm and remained in sinus rhythm, since patient denies chest pain or palpitation but admitted that she had palpitations 2-3 days prior to presentation, workup showed a normal TSH Echocardiogram showed EF 62%, no evidence of regional wall motion abnormality, normal diastolic function for age patient seen by hand sample maker Dr. Quiñones he recommend low-dose beta-blockers, due to isolated episode as well as low thromboembolic risk anticoagulation is not recommended for chads vascular score of 1 since patient remains hemodynamically stable she is being discharged back to [facility]. Dementia/mood disorder - recommend to continue divalproex, donepezil, paliperidone, and quetiapine. Subcutaneous nodule right breast at 01:00 o'clock position, known to patient and her PCP, recommend outpatient follow-up with PCP and possible surgical evaluation. Physical Exam Vital Signs: Vital Signs: Last Vital Signs Temp 97.6 F 06/02/24 11:01 Pulse 80 06/02/24 11:01 Resp 18 06/02/24 11:01 BP 130/74 06/02/24 11:01 Pulse Ox 98 06/02/24 11:01 O2 Del Method Room Air 06/02/24 11:01 BMI result Body Mass Index 33.0 Const: Other: General resting comfortably in no acute distress. Anicteric sclera Neck supple no JVD. Right breast pea-sized subcutaneous nodule at 01:00 o'clock position with distinct margins, nontender no skin erythema or puckering noted. CVS regular rate rhythm, no murmurs or rubs Respiratory lungs clear to auscultation, no respiratory distress, no wheeze, no rhonchi. Gastrointestinal abdomen soft, non tender, bowel sounds audible. Extremities no edema. Neuro non focal. Skin no rash DS: Data Data Completed and Pending Labs on day of discharge: Laboratory Results - last 24 hr 06/02/24 06:39 WBC 4.6 L RBC 4.13 L Hgb 12.6 Hct 38.2 MCV 92.5 MCH 30.5 MCHC 33.0 RDW 12.8 Plt Count 134 L MPV 12.0 Immature Gran % (Auto) 0.2 Neut % (Auto) 51.9 Lymph % (Auto) 33.0 [place] % (Auto) 12.1 H Eos % (Auto) 2.4 Baso % (Auto) 0.4 Lymph # (Auto) 1.5 [place] # (Auto) 0.6 Eos # (Auto) 0.1 Baso # (Auto) 0.0 Abs Immat Gran (auto) 0.01 Absolute Neuts (auto) 2.4 Absolute Nucleated RBC 0.000 Nucleated RBC % (auto) 0.0 Sodium 140 Potassium 4.4 Chloride 106 Carbon Dioxide 26 Anion Gap 12 BUN 16 Creatinine 0.86 Estim Creat Clear Calc 79.0 Estimated GFR > 60 Random Glucose 92 Calcium 9.0 D Discharge Plan Discharge Anticipated Discharge Date/Time: 06/02/24 11:11 Patient Disposition: Xfer SNF Discharge Diagnosis: New onset atrial fibrillation Referrals: Physician,Nonstaff [Primary Care Provider] - 1 Week Discharge Medications: New metoprolol succinate [Toprol XL] 25 mg tablet extended release 24 hr 25 mg PO DAILY Qty: 30 0RF Continued lidocaine 4 % Adhesive Patch,Medicated 1 patch TOPICAL DAILY PRN (Reason: Pain) loperamide 2 mg Capsule 2 mg PO Q4H PRN (Reason: Diarrhea) Rx Instructions: administer after each loose stool until symptoms controlled; do not exceed 8 mg per 24 hrs trazodone 50 mg Tablet 50 mg PO BEDTIME PRN (Reason: Insomnia) donepezil 10 mg Tablet 10 mg PO BEDTIME hydroxyzine HCl 50 mg Tablet 50 mg PO QID PRN (Reason: Anxiety) lorazepam 0.5 mg Tablet 0.5 mg PO Q8H PRN (Reason: Anxiety) diphenhydramine HCl [Diphendryl] 25 mg Capsule 25 mg PO Q6H PRN (Reason: Itching) divalproex 500 mg tablet extended release 24 hr 500 mg PO BID docusate sodium 100 mg Capsule 100 mg PO DAILY ibuprofen 600 mg Tablet 600 mg PO Q6H PRN (Reason: Pain (Scale Score 4-6)) albuterol sulfate 90 mcg/actuation Hfa Aerosol Inhaler 2 puff INHALATION Q4-6H PRN (Reason: Wheezing) benzocaine-menthol Lozenge 1 natalie PO Q2H PRN (Reason: Sore Throat) quetiapine 50 mg Tablet 50 mg PO BID PRN (Reason: Anxiety) paliperidone 6 mg Tablet Extended Release 24 Hr 6 mg PO DAILY paliperidone palmitate 156 mg/mL Syringe 156 mg IM Q30D Rx Instructions: due 06/04/24 Discharge Orders: Discharge Order (Routine); Ordered 06/02/24 Ordered By: Bharti Nelson Diet: Advance to usual diet Activity on Discharge: As tolerated Stand Alone Forms: Patient Portal Discharge page Print Language: Peruvian Care Plan Goals: New onset atrial fibrillation converted to normal sinus rhythm Echocardiogram unremarkable Take low-dose Toprol-XL 25 mg daily Health Concerns: Continue all home medications Plan of Treatment: Outpatient follow-up with primary care physician Assessment: As above
[2024-06-02 15:25] VITALS: BP 114/72; PULSE 83; RESP 18; TEMP 36.6; O2SAT 99
--- NOTE | 2024-06-02 15:56 | HO.PM.IMPN ---
Subjective Subjective Date of Service: 06/02/24 Interval History: Admitted due to AFib with RVR converted to normal sinus rhythm yesterday afternoon and remained in normal sinus rhythm. Denies chest pain or palpitation Admit to have palpitation 2-3 days prior to presentation Has a lump right breast requesting for surgical resection Review of Systems All other system reviewed and are negative. Physical Exam Vital Signs: Vital Signs: Last Vital Signs Temp 98 F 06/02/24 15:25 Pulse 83 06/02/24 15:25 Resp 18 06/02/24 15:25 BP 114/72 06/02/24 15:25 Pulse Ox 99 06/02/24 15:25 O2 Del Method Room Air 06/02/24 15:25 BMI result Body Mass Index 33.0 Const: Other: General resting comfortably in no acute distress. Anicteric sclera Neck supple no JVD. Right breast pea-sized subcutaneous nodule, nontender to palpation, at 01:00 o'clock position, distinct margins CVS regular rate rhythm, no murmurs or rubs Respiratory lungs clear to auscultation, no respiratory distress, no wheeze, no rhonchi. Gastrointestinal abdomen soft, non tender, bowel sounds audible. Extremities no edema. Neuro non focal. Skin no rash Objective Data Active Medications Acetaminophen (Acetaminophen 325 Mg Tablet) 650 mg PO Q6H PRN PRN Reason: Pain, Mild (Pain Scale 1-3), fever or headache Albuterol Sulfate (Albuterol Sulfate 90 Mcg 8 Gm Inhaler) 2 puff INHALE RQ4H PRN PRN Reason: Wheezing Benzocaine (Throat Lozenge, Medicated Lozenge) 1 lozenge MUCOUS MEM Q2H PRN PRN Reason: Sore Throat Last Admin: 06/02/24 13:34 Dose: 1 lozenge Documented By: SAMIR Calcium Carbonate (Calcium Carbonate 750 Mg Tab.Chew) 750 mg PO Q4H PRN PRN Reason: Heartburn Diphenhydramine HCl (Diphenhydramine Hcl 25 Mg Capsule) 25 mg PO Q6H PRN PRN Reason: Itching Last Admin: 06/01/24 23:34 Dose: 25 mg Documented By: MAURI Comments: generalized itchy Divalproex Sodium (Divalproex Sodium Er 500 Mg Tab.Er.24h) 500 mg PO BID [facility] Last Admin: 06/02/24 07:41 Dose: 500 mg Documented By: SAMIR Docusate Sodium (Docusate Sodium 100 Mg Capsule) 100 mg PO DAILY [facility] Last Admin: 06/02/24 07:42 Dose: 100 mg Documented By: SAMIR Donepezil HCl (Donepezil Hcl 10 Mg Tablet) 10 mg PO BEDTIME [facility] Last Admin: 06/01/24 19:55 Dose: 10 mg Documented By: MAURI Hydroxyzine HCl (Hydroxyzine Hcl 50 Mg Tablet) 50 mg PO QID PRN PRN Reason: Anxiety Last Admin: 06/02/24 07:45 Dose: 50 mg Documented By: SAMIR Ibuprofen (Ibuprofen 600 Mg Tablet) 600 mg PO Q6H PRN PRN Reason: Pain (Scale Score 4-6) Last Admin: 06/02/24 07:46 Dose: 600 mg Documented By: SAMIR Lorazepam (Lorazepam 0.5 Mg Tablet) 0.5 mg PO Q8H PRN PRN Reason: Anxiety Last Admin: 06/01/24 23:32 Dose: 0.5 mg Documented By: MAURI Comments: requested for anxiety Magnesium Hydroxide (Milk Of Magnesia 30 Ml Oral.Susp) 30 ml PO DAILY PRN PRN Reason: Constipation Melatonin (Melatonin 3 Mg Tablet) 6 mg PO BEDTIME PRN PRN Reason: Insomnia Ondansetron HCl (Ondansetron Hcl 4 Mg/2 Ml Vial) 4 mg IVPUSH Q8H PRN PRN Reason: Nausea and Vomiting Paliperidone (Paliperidone Er 6 Mg Tab.Er.24) 6 mg PO DAILY [facility] Last Admin: 06/02/24 07:41 Dose: 6 mg Documented By: SAMIR Quetiapine Fumarate (Quetiapine Fumarate 50 Mg Tablet) 50 mg PO BID PRN PRN Reason: Anxiety Last Admin: 06/02/24 07:45 Dose: 50 mg Documented By: SAMIR Sodium Chloride (0.9 % Sodium Chloride Flush 3 Ml Syringe) [address] [facility] Last Admin: 06/02/24 07:42 Dose: 3 ml Documented By: SAMIR Trazodone HCl (Trazodone Hcl 50 Mg Tablet) 50 mg PO BEDTIME PRN PRN Reason: Insomnia Last Admin: 06/01/24 23:32 Dose: 50 mg Documented By: MAURI Comments: requested for sleep Labs 06/02/24 06:39 06/02/24 06:39 Labs: Laboratory Results - last 24 hr 06/02/24 06:39 MCV 92.5 MCH 30.5 MCHC 33.0 RDW 12.8 Plt Count 134 L MPV 12.0 Immature Gran % (Auto) 0.2 Neut % (Auto) 51.9 Lymph % (Auto) 33.0 [place] % (Auto) 12.1 H Eos % (Auto) 2.4 Baso % (Auto) 0.4 Lymph # (Auto) 1.5 [place] # (Auto) 0.6 Eos # (Auto) 0.1 Baso # (Auto) 0.0 Abs Immat Gran (auto) 0.01 Absolute Neuts (auto) 2.4 Absolute Nucleated RBC 0.000 Nucleated RBC % (auto) 0.0 Anion Gap 12 Estim Creat Clear Calc 79.0 Estimated GFR > 60 Random Glucose 92 Calcium 9.0 D Assessment and Plan (1) Obesity (BMI 30.0-34.9): Status: Chronic (2) Dementia: Status: Acute (3) Atrial fibrillation with RVR: Status: Acute Plan # New onset atrial fibrillation with RVR 58-year-old female with a past medical history significant for dementia and mood disorder with limited history, arrived in ED from [facility] due to new onset AFib. EKG and telemonitor consistent with AFib with RVR. 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 Quiñones he recommend low-dose beta-blockers, due to isolated episode as well as low thromboembolic risk anticoagulation is not recommended for chads vascular score of 1 Right breast nodule at 01:00 o'clock, as per patient it is known to her primary care physician and was told it is benign recommend outpatient PCP follow-up and surgical recommendation as needed Dementia/mood disorder - recommend to continue divalproex, donepezil, paliperidone, and quetiapine Grade 1 obesity recommend low-calorie diet Lovenox Full code Disposition returned back to [facility] psych In my clinical judgment patient requires continued inpatient monitoring for safe disposition and monitoring for recurrent AFib Quality Stroke Does the patient have a stroke diagnosis?: No VTE Prior VTE?: No VTE Risk Level:: Medical - moderate - high VTE Device Contraindication: N/A - Device Ordered VTE Drug Contraindication: Treatment Not Tolerated
[2024-06-02] MEDS: Enoxaparin Sodium 40 MG/0.4 ML SYRINGE SUBCUT (17:12)
[2024-06-02 19:29] VITALS: BP 123/59; PULSE 85; RESP 16; TEMP 36.6; O2SAT 95
[2024-06-02] MEDS: Donepezil HCl 10 MG TABLET PO (20:19)
[2024-06-02] MEDS: traZODone HCL 50 MG TABLET PO (20:20)
[2024-06-02] MEDS: LORazepam 0.5 MG TABLET PO (20:55)
[2024-06-02 23:34] VITALS: BP 128/63; PULSE 89; RESP 18; TEMP 37.2; O2SAT 98
[2024-06-03] MEDS: Throat Lozenge, Medicated LOZENGE 1 LOZENGE MUCOUS MEM ×2 (02:57→08:49)
[2024-06-03 03:18] VITALS: BP 114/70; PULSE 73; RESP 18; TEMP 37.1; O2SAT 98
[2024-06-03 06:18] LABS: MANUAL DIFF FLAG NO
[2024-06-03 06:21] LABS: Basophils Percent Auto 0.7 % (0-2); Eosinophils Absolute Auto 0.1 X10*3/uL (0.0-0.4); Hematocrit 37.1 % (37.0-47.0); Hemoglobin 12.5 g/dl (12.0-16.0); Imm Gran Abs Auto 0.01 X10*3/uL (0.00-0.03); Imm Gran Pct Auto 0.2 % (0.0-0.4); Lymphocytes Absolute Auto 2.1 X10*3/uL (1.2-4.9); Lymphocytes Percent Auto 46.1 % (20-40); Mean Corpuscular HGB Conc 33.7 g/dl (31.0-35.0); Mean Corpuscular Hemoglobin 30.7 pg (27.0-33.0); Mean Corpuscular Volume 91.2 fL (80.0-98.0); Mean Platelet Volume 12.3 fL (9.4-12.3); Monocytes Absolute Auto 0.7 X10*3/uL (0.1-1.2); Monocytes Percent Auto 14.8 % (2-11); Neutrophils Absolute Auto 1.6 x10*3/uL (2.0-8.3); Neutrophils Percent Auto 36.2 % (45-73); Platelet Count 128 X10*3/uL (160-400); Red Blood Count 4.07 X10*6/uL (4.20-5.50); Red Cell Distribution Width 12.7 % (11.0-16.0); White Blood Count 4.5 X10*3/uL (4.8-10.8)
[2024-06-03 06:34] LABS: Anion Gap 13 (12-20); Blood Urea Nitrogen 12 mg/dL (9-16); Calcium 8.9 mg/dL (8.4-10.2); Carbon Dioxide 30 mmol/L (22-29); Chloride 103 mmol/L (96-108); Estimated Glomerular Filt Rate > 60; Glucose Random 125 mg/dL (60-115); Potassium 4.3 mmol/L (3.3-5.1); Sodium 142 mmol/L (135-145)
[2024-06-03 07:57] VITALS: BP 144/51; PULSE 74; RESP 18; TEMP 36.5; O2SAT 95
[2024-06-03] MEDS: Paliperidone ER 6 MG TAB.ER.24 PO (08:43)
[2024-06-03] MEDS: Docusate Sodium 100 MG CAPSULE PO (08:43)
[2024-06-03] MEDS: Metoprolol Succinate ER 25 MG TAB.ER.24H PO (08:43)
[2024-06-03] MEDS: Divalproex Sodium ER 500 MG TAB.ER.24H PO (08:43)
[2024-06-03] MEDS: Ibuprofen 600 MG TABLET PO (08:49)
[2024-06-03] MEDS: LORazepam 0.5 MG TABLET PO (08:50)
[2024-06-03] MEDS: 0.9 % Sodium Chloride Flush 3 ML SYRINGE IVFLUSH (08:50)
[2024-06-03] MEDS: hydrOXYzine HCL 50 MG TABLET PO (08:50)
--- NOTE | 2024-06-03 10:19 | MHC.CM.PN ---
IMM 06/03/24 Patient is discharged today. She will return to [facility]. She will transport via BLS @ 5pm. The contact info for the Nurse 2 Nurse report has been given to the RN.
--- NOTE | 2024-06-03 10:35 | PM.DS ---
DS: Providers Provider Date of Service: 06/03/24 Date of admission: 06/01/24 12:15 Date of discharge: 06/03/24 Primary care physician: Nonstaff Physician Consults: 06/01/24 12:14 Consult to Cardiology Routine Consulting Provider: [facility] Reason for consultation: new onset a fib with RVR Has provider been notified: No 06/03/24 08:11 Consult to Care Team Routine Comment: Reason for consultation: LOC, medically cleared Attending physician on discharge: Jem Mart Discharging clinician: Anne Montenegro DS: Diagnosis Discharge Diagnosis (1) Atrial fibrillation with RVR: Status: Acute DS: Summary Hospital Course Hospital Course: Date of Service: 06/01/24 Attending physician on admission: Bharti Nelson Chief Complaint: new onset a. fib Patient is a 58-year-old female with a past medical history significant for dementia with limited history, arrived in ED from [facility] due to new onset AFib. Due to her limited cognitive status history was difficult to obtain however patient denies chest pain, shortness of breath, nausea, vomiting, dizziness or weakness. She reports she reports a history of alcohol use however none recently. In ED patient noted to have atrial fibrillation with ventricular rate in 140s, afebrile, oxygenation and blood pressure, unremarkable labs, normal TSH, patient treated in the emergency room with 1 dose of IV metoprolol and IV digoxin subsequently ventricular rate improved and patient admitted to telemetry. Hospital course: New onset atrial fibrillation with RVR 58-year-old female with a past medical history significant for dementia and mood disorder with limited history, arrived in ED from [facility], due to new onset AFib. EKG and telemonitor showed AFib with RVR. Patient given digoxin 0.25 mg and metoprolol 5 mg in ED with improvement in heart rate and admitted to telemetry unit with a diagnosis of New onset AFib with RVR , during course of hospitalization patient converted to normal sinus rhythm and remained in sinus rhythm, since patient denies chest pain or palpitation but admitted that she had palpitations 2-3 days prior to presentation, workup showed a normal TSH Echocardiogram showed EF 62%, no evidence of regional wall motion abnormality, normal diastolic function for age patient seen by clinical social work aide Dr. Quiñones he recommend low-dose beta-blockers, due to isolated episode as well as low thromboembolic risk anticoagulation is not recommended for chads vascular score of 1 since patient remains hemodynamically stable she is being discharged back to [facility]. Dementia/mood disorder - recommend to continue divalproex, donepezil, paliperidone, and quetiapine. Subcutaneous nodule right breast at 01:00 o'clock position, known to patient and her PCP, recommend outpatient follow-up with PCP and possible surgical evaluation. Time Attestation Discharge Coordination Time (in mins): 35 Quality: Safe Use of Opioids Does Pt have an Active Cancer Diagnosis on the Problem List?: No Quality: Stroke Does the patient have a stroke diagnosis?: No Physical Exam Vital Signs: Vital Signs: Last Vital Signs Temp 97.7 F 06/03/24 07:57 Pulse 74 06/03/24 07:57 Resp 18 06/03/24 07:57 BP 144/51 H 06/03/24 07:57 Pulse Ox 95 06/03/24 07:57 O2 Del Method Room Air 06/03/24 07:57 BMI result Body Mass Index 33.0 Const: General: cooperative, comfortable, no acute distress, alert and awake Nutritional Appearance: overweight Resp: Effort & Inspection: normal respiratory effort, able to speak in complete sentences, no respiratory distress and no use of accessory muscles Cardio: Rate: regular rate GI: Inspection: No distended Palpation (GI): Soft to palpation Neuro: General: moves all extremities DS: Data Data Completed and Pending Labs on day of discharge: Laboratory Results - last 24 hr 06/03/24 05:34 WBC 4.5 L RBC 4.07 L Hgb 12.5 Hct 37.1 MCV 91.2 MCH 30.7 MCHC 33.7 RDW 12.7 Plt Count 128 L MPV 12.3 Immature Gran % (Auto) 0.2 Neut % (Auto) 36.2 L Lymph % (Auto) 46.1 H [place] % (Auto) 14.8 H Eos % (Auto) 2.0 Baso % (Auto) 0.7 Lymph # (Auto) 2.1 [place] # (Auto) 0.7 Eos # (Auto) 0.1 Baso # (Auto) 0.0 Abs Immat Gran (auto) 0.01 Absolute Neuts (auto) 1.6 L Absolute Nucleated RBC 0.000 Nucleated RBC % (auto) 0.0 Sodium 142 Potassium 4.3 Chloride 103 Carbon Dioxide 30 H Anion Gap 13 BUN 12 Creatinine 0.87 Estim Creat Clear Calc 78.0 Estimated GFR > 60 Random Glucose 125 H Calcium 8.9 Discharge Plan Discharge Anticipated Discharge Date/Time: 06/03/24 17:00 Patient Disposition: Xfer SNF Discharge Diagnosis: New onset atrial fibrillation Referrals: Physician,Nonstaff [Primary Care Provider] - 1 Week Discharge Medications: New metoprolol succinate [Toprol XL] 25 mg tablet extended release 24 hr 25 mg PO DAILY Qty: 30 0RF Continued lidocaine 4 % Adhesive Patch,Medicated 1 patch TOPICAL DAILY PRN (Reason: Pain) loperamide 2 mg Capsule 2 mg PO Q4H PRN (Reason: Diarrhea) Rx Instructions: administer after each loose stool until symptoms controlled; do not exceed 8 mg per 24 hrs trazodone 50 mg Tablet 50 mg PO BEDTIME PRN (Reason: Insomnia) donepezil 10 mg Tablet 10 mg PO BEDTIME hydroxyzine HCl 50 mg Tablet 50 mg PO QID PRN (Reason: Anxiety) lorazepam 0.5 mg Tablet 0.5 mg PO Q8H PRN (Reason: Anxiety) diphenhydramine HCl [Diphendryl] 25 mg Capsule 25 mg PO Q6H PRN (Reason: Itching) divalproex 500 mg tablet extended release 24 hr 500 mg PO BID docusate sodium 100 mg Capsule 100 mg PO DAILY ibuprofen 600 mg Tablet 600 mg PO Q6H PRN (Reason: Pain (Scale Score 4-6)) albuterol sulfate 90 mcg/actuation Hfa Aerosol Inhaler 2 puff INHALATION Q4-6H PRN (Reason: Wheezing) benzocaine-menthol Lozenge 1 natalie PO Q2H PRN (Reason: Sore Throat) quetiapine 50 mg Tablet 50 mg PO BID PRN (Reason: Anxiety) paliperidone 6 mg Tablet Extended Release 24 Hr 6 mg PO DAILY paliperidone palmitate 156 mg/mL Syringe 156 mg IM Q30D Rx Instructions: due 06/04/24 Discharge Orders: Discharge Order (Routine); Ordered 06/02/24 Ordered By: Bharti Nelson Diet: Advance to usual diet Activity on Discharge: As tolerated Stand Alone Forms: Patient Portal Discharge page Print Language: [place] Care Plan Goals: New onset atrial fibrillation converted to normal sinus rhythm Echocardiogram unremarkable Take low-dose Toprol-XL 25 mg daily Health Concerns: Continue all home medications Plan of Treatment: Outpatient follow-up with primary care physician Assessment: As above
[2024-06-03 11:46] VITALS: BP 138/63; PULSE 77; RESP 18; TEMP 36.3; O2SAT 96
[2024-06-03] MEDS: Enoxaparin Sodium 40 MG/0.4 ML SYRINGE SUBCUT (15:38)
[2024-06-03 16:00] VITALS: BP 107/52; PULSE 72; RESP 18; TEMP 36.4; O2SAT 96
== END 2024-06-03 18:47 | disposition skilled nursing facility (03) | DRG 310 ==
LOC: HO.ED 10:07 → HO.EDOVER 12:42 → HO.IMC 13:25
PROVIDERS: Hospitalist; Admitting Provider Physician Assistant; Emergency Provider Emergency Medicine; Visit Provider Physician Assistant Medical
DX: I48.91 Unspecified atrial fibrillation (principal); F03.90 Unspecified dementia, unspecified severity, without behavioral disturbance, psychotic disturbance, mood disturbance, and anxiety; E66.811 Obesity, class 1; Z71.3 Dietary counseling and surveillance; Z68.33 Body mass index [BMI] 33.0-33.9, adult; Z20.822 Contact with and (suspected) exposure to COVID-19; Z79.899 Other long term (current) drug therapy
CPT/HCPCS: 0241U; 36415; 71045; 80048; 80076; 81001; 81003; 83690; 83880; 84443; 84484; 85025; 85610; 93005; 93306; 99285; J1160; J1650; Q9957; S9485

== ENCOUNTER → 2024-06-01 08:29 | Outpatient (BNV) | payer MEDICARE, MEDICAID, SELFPAY | PROVIDERS: Admitting Provider Physician Assistant; Emergency Provider Emergency Medicine; Visit Provider Internal Medicine | DX: I48.91 Unspecified atrial fibrillation (principal); R94.31 Abnormal electrocardiogram [ECG] [EKG] | CPT/HCPCS: 93010 ==

== ENCOUNTER 2024-06-01 12:15 | Outpatient (BNV) | payer MEDICARE, MEDICAID, SELFPAY | END 2024-06-02 07:00 | PROVIDERS: Admitting Provider Physician Assistant; Emergency Provider Emergency Medicine; Visit Provider Internal Medicine | DX: I35.8 Other nonrheumatic aortic valve disorders (principal) | CPT/HCPCS: 93306 ==

== ENCOUNTER → 2024-06-01 12:15 | Outpatient (BNV) | payer MEDICARE, MEDICAID, SELFPAY | PROVIDERS: Admitting Provider Physician Assistant; Emergency Provider Emergency Medicine; Visit Provider Physician Assistant | DX: I48.91 Unspecified atrial fibrillation (principal) | CPT/HCPCS: 99223; 99232; 99239 ==

== ENCOUNTER → 2024-06-01 12:15 | Outpatient (BNV) | payer MEDICARE, MEDICAID, SELFPAY | PROVIDERS: Admitting Provider Physician Assistant; Emergency Provider Emergency Medicine; Visit Provider Internal Medicine | DX: I48.91 Unspecified atrial fibrillation (principal) | CPT/HCPCS: 99223 ==